=== PATIENT | male | born 1990 | race Native Hawaiian/Other Pacific Islander ===

== ENCOUNTER 2021-04-07 11:10 | Emergency (ER) | payer OTHER ==
[~2021-04-07] VITALS: Ht 175.3 cm; Wt 72.6 kg
[2021-04-07 11:17] VITALS: BP 134/65; TEMP 99
== END 2021-04-07 11:56 | disposition home or self-care (01) ==
LOC: ED 11:10
DX: L25.9 Unspecified contact dermatitis, unspecified cause (principal); B86 Scabies
CPT/HCPCS: 99281

== ENCOUNTER 2021-04-13 12:53 | Emergency (ER) | payer OTHER ==
[~2021-04-13] VITALS: Ht 175.3 cm; Wt 72.6 kg
[2021-04-13 12:58] VITALS: TEMP 97
[2021-04-13 13:35] VITALS: BP 128/62
== END 2021-04-13 13:36 | disposition home or self-care (01) ==
LOC: ED 12:53
DX: B86 Scabies (principal)
CPT/HCPCS: 99282

== ENCOUNTER 2021-05-02 09:57 | Emergency (ER) | payer OTHER ==
[~2021-05-02] VITALS: Ht 175.3 cm; Wt 72.6 kg
[2021-05-02 10:05] VITALS: BP 128/73; TEMP 97.9
== END 2021-05-02 10:45 | disposition home or self-care (01) ==
LOC: ED 09:57
DX: L50.8 Other urticaria (principal); B86 Scabies
CPT/HCPCS: 99281